=== PATIENT | male | born 1970 ===

== ENCOUNTER 2020-08-11 06:52 | Emergency (ER) | payer SELFPAY ==
[2020-08-11 07:11] VITALS: BP 166/90
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
== END 2020-08-11 10:05 | disposition home or self-care (01) ==
LOC: ED 06:52
DX: R45.0 Nervousness (principal); E11.9 Type 2 diabetes mellitus without complications; V49.49XA Driver injured in collision with other motor vehicles in traffic accident, initial encounter; Y92.410 Unspecified street and highway as the place of occurrence of the external cause; Y93.89 Activity, other specified; Y99.8 Other external cause status
CPT/HCPCS: 99282